=== PATIENT | female | born 1955 | race Caucasian/White ===

== ENCOUNTER → 2017-05-03 | Outpatient (CLI) | payer BC ==
[~2017-05-03] MED LIST: AMBIEN 5MG TABLE5 MG PO; ASPIRIN 81M81 MG/TA2 PO; CALCIUM + D 6001 TA1 PO; DUO-KAPS1 CAP PO; LEXAPRO20 MG PO; PRINZIDE 12.5 M1 TAB PO; PROTONIX 40MG T40 MG PO; SINGULAIR 110 MG/TAB PO; ZOCOR 10MG10 MG PO
== END ==
LOC: MC.RAD 09:00
DX: Z12.31 Encounter for screening mammogram for malignant neoplasm of breast (principal)

== ENCOUNTER → 2018-06-20 | Outpatient (CLI) | payer BC | LOC: MC.RAD 09:48 | DX: Z12.31 Encounter for screening mammogram for malignant neoplasm of breast (principal) ==

== ENCOUNTER → 2019-06-27 | Outpatient (CLI) | payer BC | LOC: MC.RAD 10:02 | DX: Z12.31 Encounter for screening mammogram for malignant neoplasm of breast (principal) ==

== ENCOUNTER → 2020-07-01 | Outpatient (CLI) | payer BC | LOC: MC.RAD 16:01 | DX: Z12.31 Encounter for screening mammogram for malignant neoplasm of breast (principal) ==

== ENCOUNTER → 2022-02-01 | Outpatient (CLI) | payer BC | LOC: MC.RAD 09:48 | DX: Z12.31 Encounter for screening mammogram for malignant neoplasm of breast (principal) ==

== ENCOUNTER → 2022-02-04 | Outpatient (CLI) | payer BC | LOC: MC.RAD 12:55 | DX: Z12.31 Encounter for screening mammogram for malignant neoplasm of breast (principal) ==

== ENCOUNTER 2022-07-08 13:42 | Outpatient (CLI) | payer BC, MEDICARE ==
[~2022-07-08] VITALS: Ht 152.4 cm; Wt 63.1 kg
[~2022-07-08 13:42] MED LIST changes: -CALCIUM + D 6001 TA1 PO; +CALCIUM 600MG+D1 TAB PO
[2022-07-08 14:12] VITALS: BP 118/72; PULSE 89; TEMP 99.4
[2022-07-08] MEDS ORDERED: PROLIA60 MG/ML SQ (14:22)
== END 2022-07-08 14:36 | disposition home or self-care (01) ==
LOC: EUO 13:42
DX: M81.0 Age-related osteoporosis without current pathological fracture (principal)
CPT/HCPCS: J0897

== ENCOUNTER 2023-01-17 14:43 | Outpatient (CLI) | payer MEDICARE, BC ==
[~2023-01-17] VITALS: Ht 152.4 cm; Wt 61.4 kg
[~2023-01-17 14:43] MED LIST changes: +PROLIA60 MG/ML SQ
[2023-01-17 15:02] VITALS: BP 111/70; PULSE 100; TEMP 97.9
[2023-01-17] MEDS ORDERED: [UNRECOGNIZED DRUG - OTHER] PO (15:11)
--- NOTE | 2023-01-17 16:18 | NUR ---
PT RECIEVED HER PROLIA SHOT IN HER RIGHT BICEP. PT TOLERATED THE INJECTION WELL AND WAS ABLE TO WALK HERSELF OUT OF THE HOSPITAL. VITAL SIGNS REMAINED WITHIN NORMAL LIMITS AND THE PT WAS ABLE TO ANSWER ALL OF HER HISTORY QUESTIONS THOROUGHLY. PT IS AWARE THAT HER NEXT INJECTION WILL TAKE PLACE IN 6 MONTHS. PT WAS FREE FROM COMPLAINTS AND CONCERNS AT THE TIME OF DISCHARGE.
== END 2023-01-17 15:35 | disposition home or self-care (01) ==
LOC: EUO 14:43
DX: M81.0 Age-related osteoporosis without current pathological fracture (principal)
CPT/HCPCS: J0897

== ENCOUNTER → 2024-02-09 | Outpatient (CLI) | payer MEDICARE, BC ==
[~2024-02-09] MED LIST changes: +[UNRECOGNIZED DRUG - OTHER] PO
== END ==
LOC: MC.RAD 09:44
DX: Z12.31 Encounter for screening mammogram for malignant neoplasm of breast (principal)